=== PATIENT | male | born 1955 | race Caucasian/White ===

== ENCOUNTER 2017-09-27 05:17 | Emergency (ER) | payer BC ==
[~2017-09-27] VITALS: Ht 180.3 cm; Wt 99.8 kg
[2017-09-27 05:17] VITALS: BP_SYST 149
[~2017-09-27 05:17] MED LIST: HYDR-1189 PO; TAMS-11 PO
[2017-09-27] MEDS ORDERED: PROPARACAINE (OPTHANINE 0.5%) 15 ML DROPS OP ONE (05:30)
[2017-09-27 06:00] VITALS: BP_SYST 141
[2017-09-27] MEDS ORDERED: ERYTHROMYCIN 0.5% EYE OINT 3.5 GM OP ONE (06:00)
[2017-09-27] MEDS ORDERED: ACETAMINOPHEN 500 MG TABLET PO ONE (06:00)
== END 2017-09-27 06:00 | disposition home or self-care (01) ==
LOC: SED 05:17
DX: S05.02XA Injury of conjunctiva and corneal abrasion without foreign body, left eye, initial encounter (principal); I10 Essential (primary) hypertension; Z88.5 Allergy status to narcotic agent; X58.XXXA Exposure to other specified factors, initial encounter; Y93.89 Activity, other specified; Y92.89 Other specified places as the place of occurrence of the external cause; Y99.8 Other external cause status
CPT/HCPCS: 99284

== ENCOUNTER 2019-03-27 07:57 | Emergency (ER) | payer BC ==
[~2019-03-27] VITALS: Ht 177.8 cm; Wt 99.8 kg
--- NOTE | 2019-03-27 08:01 | NUR ---
Patient to ER bed 6 to gown for evaluation. Side rails up.
[2019-03-27 08:08] VITALS: BP_SYST 148
--- NOTE | 2019-03-27 08:16 | NUR ---
Pt presents to ED c/o L jaw pain radiaiting to face x 2 days.Pt has no acute distress noted. Pt reports recent dental visit no c/o toothache.
--- NOTE | 2019-03-27 08:17 | NUR ---
ER at bedside examining patient.
[2019-03-27] MEDS ORDERED: HYDROcodone/ACETAMIN 10-325 MG TAB PO ONE (08:45)
--- NOTE | 2019-03-27 09:07 | NUR ---
Pt given Hydrocodone 10-[address] Evangelista order. Pt advised he needs to arrange transportation. Per pt he has a ride [place] girlfriend.
[2019-03-27 09:13] LABS: BASOPHILS % (AUTO) 0.6 % (0.0-2.0); EOSINOPHILS # (AUTO) 0.1 K/uL (0.0-0.4); EOSINOPHILS % (AUTO) 2.2 % (0.0-4.0); HEMATOCRIT 46.9 % (36-54); HEMOGLOBIN 15.6 g/dL (14.0-18.0); LYMPHOCYTES # (AUTO) 1.9 K/uL (1.0-5.5); MEAN CORPUSCULAR HEMOGLOBIN 31 pg (27-31); MEAN CORPUSCULAR HGB CONC 33 % (32-36); MEAN CORPUSCULAR VOLUME 93 fL (79.0-98.0); MONOCYTES # (AUTO) 0.6 K/uL (0.0-1.0); NEUTROPHILS # (AUTO) 3.4 K/uL (1.8-7.7); NEUTROPHILS % (AUTO) 56.2 % (40.0-70.0); PLATELET COUNT (AUTO) 170 K/uL (130-430); RED BLOOD CELL COUNT(AUTO) 5.03 MIL/uL (4.2-6.2); RED CELL DISTRIBUTION WIDTH 13.7 % (9.0-15.0)
[2019-03-27 09:23] LABS: CALCIUM 9.4 mg/dL (8.4-11.0); CREATININE 0.97 mg/dL (0.55-1.30); POTASSIUM 4.4 mmol/L (3.5-5.1)
[2019-03-27 09:28] LABS: ALBUMIN 3.7 g/dL (3.4-4.8); TOTAL BILIRUBIN 0.7 mg/dL (0.0-1.0)
[2019-03-27 10:15] LABS: ERYTHROCYTE SEDIMENTATION RATE 2 MM/HR (0-15)
[2019-03-27 10:29] VITALS: BP_SYST 122
--- NOTE | 2019-03-27 10:29 | NUR ---
Patient given written and verbal discharge instructions and verbalizes understanding. ER MD discussed with patient the results and treatment provided. Patient in stable condition. ID arm band removed. Rx of [employer] 5-325 given. Patient educated on pain management and to follow up with PMD. Pain Scale 3 Opportunity for questions provided and answered. Medication side effect fact sheet provided.
== END 2019-03-27 10:29 | disposition home or self-care (01) ==
LOC: SED 07:57
DX: R68.84 Jaw pain (principal); I10 Essential (primary) hypertension; Z79.899 Other long term (current) drug therapy
CPT/HCPCS: 36415; 80053; 85025; 85651-TC; 99283

== ENCOUNTER 2019-10-12 09:57 | Emergency (ER) | payer BC ==
[~2019-10-12] VITALS: Ht 177.8 cm; Wt 83.9 kg
[2019-10-12 09:57] VITALS: BP_SYST 144
--- NOTE | 2019-10-12 09:57 | NUR ---
Placed in room 3 . Placed on surveillance monitor, blood pressure machine and pulse oximeter. To gown for exam. Side rails up. Report given to RENE Paez.
--- NOTE | 2019-10-12 09:58 | NUR ---
Patient drove in from home. He is complaining of chest pain across chest radiating up to neck starting at 0930 today. Patient denies nausea, vomiting, diarrhea.
[2019-10-12] MEDS ORDERED: ASPIRIN 325 MG TABLET (ECOTRIN) PO ONE (10:15)
[2019-10-12] MEDS ORDERED: MORPHINE 4 MG/ML INJ. SYRINGE IVP ONE (10:15)
--- NOTE | 2019-10-12 10:21 | NUR ---
ROBER Leon at bedside examining patient.
[2019-10-12] MEDS ORDERED: NITROGLYCERIN 0.4 MG TAB.SUBL SL ONE (10:30)
--- NOTE | 2019-10-12 10:38 | NUR ---
X-ray at bedside.
--- NOTE | 2019-10-12 10:40 | NUR ---
Patient informed that a urine sample is needed and provided a urinal. Patient verbalized understanding.
[2019-10-12 10:41] LABS: BASOPHILS % (AUTO) 0.5 % (0.0-2.0); EOSINOPHILS # (AUTO) 0.1 K/uL (0.0-0.4); EOSINOPHILS % (AUTO) 1.5 % (0.0-4.0); HEMATOCRIT 43.5 % (36-54); HEMOGLOBIN 14.8 g/dL (14.0-18.0); LYMPHOCYTES # (AUTO) 1.6 K/uL (1.0-5.5); LYMPHOCYTES % (AUTO) 35.6 % (20.5-51.5); MEAN CORPUSCULAR HEMOGLOBIN 31 pg (27-31); MEAN CORPUSCULAR HGB CONC 34 % (32-36); MEAN CORPUSCULAR VOLUME 92 fL (79.0-98.0); MONOCYTES # (AUTO) 0.5 K/uL (0.0-1.0); MONOCYTES % (AUTO) 10.5 % (1.7-9.3); NEUTROPHILS # (AUTO) 2.3 K/uL (1.8-7.7); NEUTROPHILS % (AUTO) 51.9 % (40.0-70.0); PLATELET COUNT (AUTO) 165 K/uL (130-430); RED BLOOD CELL COUNT(AUTO) 4.72 MIL/uL (4.2-6.2); RED CELL DISTRIBUTION WIDTH 15.5 % (9.0-15.0); WHITE BLOOD COUNT (AUTO) 4.4 K/uL (4.8-10.8)
[2019-10-12 11:01] LABS: ANION GAP 5 (5-15); CHLORIDE 103 mmol/L (98-107); CREATININE 1.01 mg/dL (0.55-1.30); GLUCOSE 100 mg/dL (70-99); POTASSIUM 3.8 mmol/L (3.5-5.1); SODIUM SERUM 139 mmol/L (136-145); UREA NITROGEN, BLOOD 18 mg/dL (8-21)
[2019-10-12 11:02] LABS: GFR AFRICAN AMERICAN 96 mL/min (>90)
[2019-10-12 11:21] LABS: ALANINE AMINOTRANSFERASE 55 U/L (12-78); ASPARTATE AMINOTRANSFERASE 30 U/L (10-37); LIPASE 122 U/L (73-393); TOTAL BILIRUBIN 0.5 mg/dL (0.0-1.0)
[2019-10-12 11:30] LABS: ALCOHOL, BLOOD < 3 mg/dL (<10)
[2019-10-12 13:10] VITALS: BP_SYST 136
[2019-10-12 13:23] LABS: BILIRUBIN,URINE NEGATIVE (NEGATIVE); BLOOD, URINE NEGATIVE (NEGATIVE); CLARITY/URINE CLEAR (CLEAR); COLOR,URINE YELLOW (YELLOW); GLUCOSE,URINE NEGATIVE (NEGATIVE); KETONES,URINE NEGATIVE (NEGATIVE); LEUKOCYTE ESTERASE ,URINE NEGATIVE (NEGATIVE); NITRITE, URINE NEGATIVE (NEGATIVE); PH,URINE 6.5 (5.0-8.0); PROTEIN URINE NEGATIVE (NEGATIVE); UROBILINOGEN,URINE 0.2 (0.2-1.0)
== END 2019-10-12 13:10 | disposition home or self-care (01) ==
LOC: SED 09:57
CPT/HCPCS: 36415; 71045; 80053; 81003; 83690; 84484; 85025; 85379; 93005; 96374; 99284; G0482; J2270

== ENCOUNTER 2020-08-03 11:11 | Emergency (ER) | payer BC ==
[~2020-08-03] VITALS: Ht 180.3 cm; Wt 99.8 kg
[2020-08-03 11:14] VITALS: BP_SYST 141
[2020-08-03] MEDS ORDERED: ONDANSETRON HCL 4 MG/2 ML VIAL IVP ONE (11:45)
[2020-08-03] MEDS ORDERED: NACL 0.9% 1,000 ML IV ONE (11:45)
[2020-08-03] MEDS ORDERED: MORPHINE 4 MG/ML INJ. SYRINGE IVP ONE (11:45)
[2020-08-03 13:14] VITALS: BP_SYST 131
== END 2020-08-03 13:14 | disposition home or self-care (01) ==
LOC: SED 11:11
DX: M54.5 Low back pain (principal); I10 Essential (primary) hypertension; Z79.899 Other long term (current) drug therapy
CPT/HCPCS: 96361; 96374; 96375; 99284; J2270; J2405; J7030

== ENCOUNTER 2020-08-12 14:20 | Emergency (ER) | payer BC ==
[~2020-08-12] VITALS: Ht 177.8 cm; Wt 113.4 kg
[2020-08-12 14:30] VITALS: BP_SYST 146
[2020-08-12] MEDS ORDERED: MORPHINE 4 MG/ML INJ. SYRINGE IM ONE ×3 (15:00→16:00)
[2020-08-12 16:19] VITALS: BP_SYST 146
== END 2020-08-12 16:19 | disposition home or self-care (01) ==
LOC: SED 14:20
DX: M54.5 Low back pain (principal); I10 Essential (primary) hypertension; Z79.899 Other long term (current) drug therapy
CPT/HCPCS: 96372; 99284; J2270

== ENCOUNTER 2020-08-13 23:59 | Inpatient (IN) | payer BC, SELFPAY ==
[~2020-08-13] VITALS: Ht 182.9 cm; Wt 104.3 kg
[2020-08-14 00:11] VITALS: BP_SYST 135
[2020-08-14 01:09] LABS: BASOPHILS # (AUTO) 0.1 K/uL (0.0-0.2); BASOPHILS % (AUTO) 0.8 % (0.0-2.0); EOSINOPHILS % (AUTO) 0.2 % (0.0-4.0); HEMATOCRIT 43.1 % (36-54); HEMOGLOBIN 14.4 g/dL (14.0-18.0); LYMPHOCYTES % (AUTO) 12.9 % (20.5-51.5); MEAN CORPUSCULAR HEMOGLOBIN 30 pg (27-31); MEAN CORPUSCULAR HGB CONC 33 % (32-36); MEAN CORPUSCULAR VOLUME 90 fL (79.0-98.0); MONOCYTES # (AUTO) 1.1 K/uL (0.0-1.0); MONOCYTES % (AUTO) 14.7 % (1.7-9.3); NEUTROPHILS # (AUTO) 5.5 K/uL (1.8-7.7); NEUTROPHILS % (AUTO) 71.4 % (40.0-70.0); PLATELET COUNT (AUTO) 197 K/uL (130-430); RED BLOOD CELL COUNT(AUTO) 4.77 MIL/uL (4.2-6.2); RED CELL DISTRIBUTION WIDTH 14.4 % (9.0-15.0); WHITE BLOOD COUNT (AUTO) 7.7 K/uL (4.8-10.8)
[2020-08-14] MEDS ORDERED: MORPHINE 2 MG/ML INJ. SYRINGE IVP ONE (01:15)
[2020-08-14] MEDS ORDERED: LORazepam 2 MG/ML VIAL IVP ONE (01:15)
[2020-08-14 01:23] LABS: CALCIUM 8.9 mg/dL (8.4-11.0); CREATININE 0.92 mg/dL (0.55-1.30); POTASSIUM 3.9 mmol/L (3.5-5.1)
[2020-08-14 01:27] LABS: INR 0.9 (0.80-1.20); PROTHROMBIN TIME 9.3 SECS (9.5-12.5)
[2020-08-14 01:32] LABS: ALBUMIN 2.9 g/dL (3.4-4.8); TOTAL BILIRUBIN 0.2 mg/dL (0.0-1.0)
[2020-08-14 02:21] LABS: BILIRUBIN,URINE NEGATIVE (NEGATIVE); BLOOD, URINE NEGATIVE (NEGATIVE); CLARITY/URINE CLEAR (CLEAR); COLOR,URINE YELLOW (YELLOW); GLUCOSE,URINE NEGATIVE (NEGATIVE); KETONES,URINE NEGATIVE (NEGATIVE); LEUKOCYTE ESTERASE ,URINE NEGATIVE (NEGATIVE); NITRITE, URINE NEGATIVE (NEGATIVE); PROTEIN URINE NEGATIVE (NEGATIVE); UROBILINOGEN,URINE 0.2 (0.2-1.0)
[2020-08-14] MEDS ORDERED: NACL 0.9% 1,000 ML IV ONE (03:15)
[2020-08-14] MEDS ORDERED: MORPHINE 4 MG/ML INJ. SYRINGE IVP ONE (03:15)
[2020-08-14] MEDS ORDERED: OXYC60TA8 PO (03:25)
[2020-08-14] MEDS ORDERED: CYCL7.5T20 PO (03:25)
[2020-08-14] MEDS ORDERED: HYDROmorphone 1 MG INJ. 1 MG/ML AMPUL IVP PRN (03:45)
[2020-08-14] MEDS ORDERED: HYDROmorphone 2 MG/ML VIAL IVP PRN (03:45)
[2020-08-14 06:27] VITALS: BP_SYST 153
[2020-08-14 08:00] VITALS: BP_SYST 155
[2020-08-14] MEDS ORDERED: NALOXONE HCL 0.4 MG/ML AMP (NARCAN) IVP PRN (10:30)
[2020-08-14] MEDS ORDERED: oxyCODONE HCL 10 MG TAB.ER.12H PO SCH (10:30)
[2020-08-14] MEDS ORDERED: HYDROcodone/ACETAMIN 5-325 MG TAB (NORCO/ VICODIN) PO SCH (10:30)
[2020-08-14] MEDS ORDERED: CYCLOBENZAPRINE HCL 10 MG TABLET (FLEXERIL) PO ONE (12:00)
[2020-08-14] MEDS: HYDROmorphone 2 MG/ML VIAL IVP PRN (12:13)
[2020-08-14 14:00] VITALS: BP_SYST 154
[2020-08-14 17:30] VITALS: BP_SYST 147
[2020-08-14] MEDS: HYDROcodone/ACETAMIN 5-325 MG TAB (NORCO/ VICODIN) PO PRN (17:50)
[2020-08-14] MEDS ORDERED: *LOVENOX 1MG/KG Q24H/PHARMACY XX ONE (18:00)
[2020-08-14] MEDS ORDERED: ENOXAPARIN SODIUM 100 MG/ML SYRINGE SUBCUT ONE (18:15)
[2020-08-14] MEDS: cefTRIAXone 1 GM in D5W 50 ML IV SCH (18:52)
[2020-08-14] MEDS: DEXAMETHASONE SOD PHOSPHATE 10 MG/ML VIAL IVP SCH (19:00)
[2020-08-14 20:00] VITALS: BP_SYST 135
[2020-08-15] MEDS: HYDROcodone/ACETAMIN 5-325 MG TAB (NORCO/ VICODIN) PO PRN ×2 (00:15→06:30)
[2020-08-15 00:22] VITALS: BP_SYST 130
[2020-08-15 04:33] VITALS: BP_SYST 141
[2020-08-15 08:00] VITALS: BP_SYST 133
[2020-08-15] MEDS ORDERED: CYCLOBENZAPRINE HCL 10 MG TABLET (FLEXERIL) PO SCH (09:00)
[2020-08-15] MEDS ORDERED: ENOXAPARIN SODIUM 100 MG/ML SYRINGE SUBCUT SCH (09:00)
[2020-08-15] MEDS: HYDROmorphone 2 MG/ML VIAL IVP PRN ×3 (11:00→18:30)
[2020-08-15 12:00] VITALS: BP_SYST 133
[2020-08-15 17:00] VITALS: BP_SYST 131
[2020-08-15 17:31] VITALS: BP_SYST 131
[2020-08-15] MEDS: cefTRIAXone 1 GM in D5W 50 ML IV SCH (18:02)
[2020-08-15] MEDS: DEXAMETHASONE SOD PHOSPHATE 10 MG/ML VIAL IVP SCH (18:02)
== END 2020-08-15 20:05 | disposition short-term general hospital (02) | DRG 177 ==
LOC: SED 23:59 → SMU 08-14 03:31
PROVIDERS: ADMIT Internal Medicine Hospice and Palliative Medicine; ATTEND Internal Medicine Hospice and Palliative Medicine
DX: U07.1 COVID-19 (principal); J12.9 Viral pneumonia, unspecified; M54.9 Dorsalgia, unspecified; I10 Essential (primary) hypertension; E66.01 Morbid (severe) obesity due to excess calories; G89.29 Other chronic pain; M54.5 Low back pain; R09.02 Hypoxemia; Z68.31 Body mass index [BMI] 31.0-31.9, adult
CPT/HCPCS: 36415; 72125-TC; 72128; 72131; 80053; 81003; 82728; 83690-TC; 85025; 85379; 85610-TC; 85651-TC; 85730-TC; 86140; 87086; 96361; 96374; 96375; 96376; 99285; G0482; J0696; J1100; J1170; J1650; J2060; J2270; J7060; U0003-CS